=== PATIENT | female | born 1980 | race Caucasian/White ===

== ENCOUNTER 2022-08-21 18:04 | Emergency (ER) | payer OTHER ==
--- OUTSIDE RECORDS SUMMARY | 2022-08-21 18:18 | XMS REPORT | Continuity of Care Document ---
:1980 Author Organization [facility] t Address [address] [place] [address] [place] [id number] Care Team Providers Name Role Phone ERIC ZULUAGA Primary Care Physician Unavailable SYSTEM, PROVIDER NOT IN Attending Clinician Unavailable ALIE KOCH Attending Clinician Unavailable ALIE KOCH Attending Clinician Unavailable BERTO NAQVI Attending Clinician Unavailable DONG JOHNSON Attending Clinician Unavailable LAB90 Attending Clinician Unavailable HEMA_Kenneth Attending Clinician Unavailable Connie Garrido Attending Clinician [phone] Alie Koch MD Attending Clinician Tino Patiño PA-C Attending Clinician Only, Adc Test Attending Clinician Unavailable Arlet Tian MD Attending Clinician ARLET TIAN Attending Clinician Unavailable Doctor Unassigned, Griffin Attending Clinician Unavailable TION PATIÑO Attending Clinician Unavailable Vangie Curiel MD Attending Clinician Pattie Navarrete RN Attending Clinician Unavailable Only, Ang Db Test Attending Clinician Unavailable Unknown, Attending Attending Clinician Unavailable Katerina Pozo Attending Clinician KATERINA FERGUSON Attending Clinician Unavailable [facility] Attending Clinician Unavailable Pgy3 Attending Clinician Unavailable LIN STOVER Attending Clinician Unavailable Lin Stover MD Attending Clinician RICKIE CABRERA Attending Clinician Unavailable Jennifer MARQUEZCNPMacy Attending Clinician [phone] Hannah Castillo Attending Clinician HANNAH RODRIGUEZ Attending Clinician Unavailable Wellington Borjas Attending Clinician WELLINGTON VANG Attending Clinician Unavailable Meagan Attending Clinician Unavailable ALIE KOCH Admitting Clinician Unavailable KENNETH Admitting Clinician Unavailable Alie Koch MD Admitting Clinician TINO PATIÑO Admitting Clinician Unavailable Meagan Admitting Clinician Unavailable Payers Payer Name Policy Type Policy Number Effective Date Expiration Date Karina CRABTREE [id number] [facility] 00:00:00 AETNA MP CVS 9 [id number] 2022 SILVER: O HOG CUTTER 94 00:00:[address] [facility] INDIGENT PROGRAM [id number] Problems Condition Condition Condition Status Onset Resolution Last Treating Co mments Source Name Details Category Date Date Treatment Clinician Date Diabetes Diabetes Disease Active Kelse y 08-03 Seybold 00:00: - 00 Externa l Depression Depression Disease Active K elsey 08-03 Seybold 00:00: - 00 Externa l Neuropathy Neuropathy Disease Active K elsey 08-03 Seybold 00:00: - 00 Externa l History of History of Disease Active K elsey uterine uterine 08-03 Seybold cancer cancer 00:00: - 00 Externa l History of History of Disease Active K elsey back back 08-03 Seybold surgery surgery 00:00: - 00 Externa l Chronic Chronic Disease Active Ivonne bilateral bilateral 08-03 Seyb old low back low back 00:00: - pain with pain with 00 Exte rna right-side right-side l d sciatica d sciatica Hypothyroi Hypothyroi Disease Active K elsey dism dism 08-03 Seybold 00:00: - 00 Externa l S/P S/P Disease Active Univers hysterecto hysterecto 3-01 it y of my with my with 00:00: [place] oophorecto oophorecto 00 Me dical my my Branch Neoplasm Neoplasm Problem Active Sween y of uterus of Uterus 1-18 Comm uni 00:00: ty 00 [facility] Diabetes Diabetes Problem Active Sween y mellitus Mellitus 1-18 Commun i 00:00: ty 00 [facility] Malignant Malignant Disease Active 2020-03 Uni vers neoplasm neoplasm 2-07 ity of of of 00:00: [place] endometriu endometriu 00 Me dical m m Branch Smoker Smoker Disease Active 2020-03 Univers 2-07 ity of 00:00: [place] 00 Medical Branch BMI BMI Disease Active 2020-03 Univers 40.0-44.9, 40.0-44.9, 2-07 it y of adult adult 00:00: [place] 00 [facility] Branch Dental Dental Disease Active 2020-03 Univers caries caries 2-07 ity of 00:00: [place] Medical Branch Cervical Cervical Disease Active Overview: Un josue Papanicola Papanicola 9-24 Formattin ity of ou smear ou smear 00:00: g of this Tad as negative negative 00 note Medica l within within might be Branch last 12 last 12 different months months from the original. 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 2-24 it y of sterolemia sterolemia [place] Mixed Mixed Disease Active Univers anxiety anxiety 2-24 ity of and and 00:00: [place] depressive depressive 00 Me dical disorder disorder Branch Allergies, Adverse Reactions, Alerts Allergy Allergy Status Severity Reaction(s) Onset Inactive Treating Comm ents Source Name Type Date Date Clinician Sulfamet Propensi Active Hives Ivonne hoxazole ty to 5-08 Seybold -Trimeth adverse 00:00: - oprim reaction 00 Externa s l Cephalex Propensi Active Hives Ivonne in-Fd&C ty to 508 Seybold #2-Fd&C adverse 00:00: - Yellow reaction 00 Externa #10 s l Tramadol Propensi Active Other ineffecti Carlton sey ty to 5-08 ve Seybold adverse 00:00: - reaction 00 Externa s l Cephalex Propensi Active Hives 2012-03 Univer s in ty to 2-21 ity of adverse 00:00: [place] reaction 00 Medical s Branch Nabumeto Propensi Active Nausea 2012-03 Univer s ne ty to and/or 2-21 ity of adverse Vomiting 00:00: [place] reaction 00 Medical s Branch Sulfa Propensi Active Hives 2012-03 Univers (Sulfona ty to 2-21 ity of mide adverse 00:00: [place] Antibiot reaction 00 Medica l ics) s Branch Tramadol Propensi Active Nausea 2012-03 Univer s -Acetami ty to and/or 2-21 ity of nophen adverse Vomiting 00:00: [place] reaction 00 Medical s Branch CEPHALEX DRUG Active Hives 2012-03 Univers IN INGREDI 2-21 ity of 00:00: [place] 00 Medical Branch NABUMETO DRUG Active N/V 2012-03 Univers NE INGREDI 2-21 ity of 00:00: [place] 00 Medical Branch SULFA Drug Active Hives 2012-03 Univers (SULFONA Class 2-21 ity of MIDE 00:00: [place] ANTIBIOT 00 Medical ICS) Branch TRAMADOL DRUG Active N/V 2012-03 Univers -ACETAMI 2-21 ity of NOPHEN 00:00: [place] 00 Medical Branch Bactrim Allergy Active Moderate Hives [place] to Commun[facility] Keflex Allergy Active Moderate Hives [place] to Communi substanc [facility] Clinics Social History Social Habit Start Date Stop Date Quantity Comments Source Gender identity Ivonne stringer - External Sexual orientation Ivonne Keecaitlyn - External History of tobacco Cigarette Smoker Ivonne Keecaitlyn - use External Exposure to Not sure University of SARS-CoV-2 (event) [facility] [place] [facility] Alcohol intake 2022-08-03 2022-08-03 Ex-drinker Ivonne li - 00:00:00 00:00:00 (finding) External Tobacco use and 2022-08-02 2022-08-02 Smokeless Ivonneharmony stringer - exposure 00:00:00 00:00:00 tobacco non-user External History of Social 2022-08-02 2022-08-02 Ivonne Ortez - function 00:00:00 00:00:00 External Cigarettes smoked 2022-08-02 2022-08-02 Ivonne Ortez - current (pack per 00:00:00 00:00:00 Externa l day) - Reported Cigarette 2022-08-02 2022-08-02 Ivonne Ortez - pack-years 00:00:00 00:00:00 External Tobacco Comment 2021-03-03 2021-03-03 slowing down Univers ity of 00:00:00 00:00:00 [facility] [place] [facility] Sex [birth year] At [birth year] Ivonne stringer - 00:00:00 00:00:00 External Smoking Status Start Date Stop Date Source Heavy Tobacco Smoker [facility] Smokes tobacco daily 2022-08-02 00:00:00 Ivonne Ortez - External Medications Ordered Filled Start Stop Current Ordering Indication Dosage Frequency Signature Comments Components Source Medication Medication Date Date Medication? Clinician (SIG) Name Name Metformin 2022-2022- No 500mg Take 1 Shahla ey HCl ER 500 5- 05-09 tablet Seybol d MG oral 11:24: 00:00 (500 mg - TABLET SR 16 :00 total) by Exter na 24 HR mouth l daily (with breakfast) Gabapentin Yes 1800mg Take 3 Carlton sey 600 MG oral 5-09 tablets Seybo ld Tablet 11:05: (1,800 mg - 01 total) by Externa mouth l every night at bedtime Citalopram 2022- Yes 40mg Take 1 Kelse y Hydrobromid 5-09 tablet (40 Se ybold e 40 MG 11:05: mg total) - oral Tablet 01 by mouth Exte rna daily l Levothyroxi Yes 125ug Take 1 Carlton sey ne Sodium 5-09 tablet Seybold 125 MCG 11:05: (125 mcg - oral Tablet 01 total) by Ext michelle mouth l daily Metformin Yes [id number] 500mg Take 1 K elsey HCl ER 500 5-09 tablet Seybold MG oral 00:00: (500 mg - TABLET SR 00 total) by Exter na 24 HR mouth l daily (with breakfast) Meloxicam Yes [id number] 15mg QD Take 1 K elsey 15 MG oral 5-09 tablet (15 Sey bold Tablet 00:00: mg total) - 00 by mouth Externa daily as l needed for pain citalopram Yes Take 40 mg U nivers hydrobromid 3-01 base by ity o f e 13:57: mouth. [place] (CITALOPRAM 14 Medical ORAL) Branch citalopram Yes Take 40 mg U nivers hydrobromid 3-01 base by ity o f e 13:57: mouth. [place] (CITALOPRAM 14 Medical ORAL) Branch Levothyroxi Yes Take by Uni vers ne 125 mcg 3-01 mouth. ity of capsule 13:55: [address] gabapentin Yes 600mg Take 600 Un josue 600 mg 3-01 mg by ity of tablet 13:55: mouth 2 [place] [id number] (two) Medical times [place] daily. Levothyroxi Yes Take by Uni vers ne 125 mcg 3-01 mouth. ity of capsule 13:55: [address] gabapentin Yes 600mg Take 600 Un josue 600 mg 3-01 mg by ity of tablet 13:55: mouth 2 [place] [address] (two) Medical times Branch daily. metformin Yes [id number] 500mg Take 1 Univers ER 500 mg 2-02 tablet by ity o f 24 hr 00:00: mouth [place] tablet 00 daily with Medical breakfast. Branch metformin Yes [id number] 500mg Take 1 Univers ER 500 mg 2-02 tablet by ity o f 24 hr 00:00: mouth [place] tablet 00 daily with Medical breakfast. Branch metformin metformin 2020-03 No 1 Q1D metformin [place] ER 500 mg ER 500 mg 2-08 ER 500 mg Communi tablet,exte tablet,exte 00:00: tablet,ext ty nded nded 00 ended Hospita release 24 release 24 release 24 l hr 1 tablet hr 1 tablet hr 1 C linics every day every day tablet by oral by oral every day route. route. by oral route. citalopram citalopram No citalopram [place] 40 mg 40 mg 40 mg Communi tablet TAKE tablet TAKE tablet ty 1 TABLET BY 1 TABLET BY TAKE 1 Hospita MOUTH ONCE MOUTH ONCE TABLET BY l DAILY DAILY MOUTH ONCE Clinics DAILY gabapentin gabapentin No 2capsul BID gabapentin [place] 300 mg 300 mg e(s) 300 mg Communi capsule capsule capsule ty Take 2 Take 2 Take 2 Hospita capsules capsules capsules l twice a day twice a day twice a Clinics by oral by oral day by route for route for oral route 30 days. 30 days. for 30 days. levothyroxi levothyroxi No levothyrox [place] ne 125 mcg ne 125 mcg ine 125 Communi tablet TAKE tablet TAKE mcg tablet ty 1 TABLET BY 1 TABLET BY TAKE 1 Hospita MOUTH ONCE MOUTH ONCE TABLET BY l DAILY DAILY MOUTH ONCE Clinics DAILY cholecalcif cholecalcif No 1capsul Q1W cholecalci [place] iraida iraida e(s) ferol Communi (vitamin (vitamin (vitamin ty D3) 1,250 D3) 1,250 D3) 1,250 Hospita mcg (50,000 mcg (50,000 mcg l unit) unit) (50,000 Clinics capsule capsule unit) Take 1 Take 1 capsule capsule capsule Take 1 every week every week capsule by oral by oral every week route for route for by oral 90 days. 90 days. route for 90 days. citalopram citalopram No citalopram [place] 40 mg 40 mg 40 mg Communi tablet TAKE tablet TAKE tablet ty 1 TABLET BY 1 TABLET BY TAKE 1 Hospita MOUTH 1 MOUTH 1 TABLET BY l TIME EACH TIME EACH MOUTH 1 Cl inics DAY DAY TIME EACH DAY folic acid folic acid No 1 Q1D folic acid [place] 1 mg tablet 1 mg tablet 1 mg C ommuni Take 1 Take 1 tablet ty tablet tablet Take 1 Hospita every day every day tablet l by oral by oral every day Clin ics route for route for by oral 90 days. 90 days. route for 90 days. gabapentin gabapentin No gabapentin [place] 300 mg 300 mg 300 mg Communi capsule capsule capsule ty TAKE 2 TAKE 2 TAKE 2 Hospita CAPSULES BY CAPSULES BY CAPSULES l MOUTH TWICE MOUTH TWICE BY MOUTH Clinics A DAY A DAY TWICE A DAY levothyroxi levothyroxi No levothyrox [place] ne 125 mcg ne 125 mcg ine 125 Communi tablet TAKE tablet TAKE mcg tablet ty 1 TABLET BY 1 TABLET BY TAKE 1 Hospita MOUTH 1 MOUTH 1 TABLET BY l TIME EACH TIME EACH MOUTH 1 Cl inics DAY DAY TIME EACH DAY citalopram citalopram No citalopram [place] 40 mg 40 mg 40 mg Communi tablet TAKE tablet TAKE tablet ty 1 TABLET BY 1 TABLET BY TAKE 1 Hospita MOUTH EVERY MOUTH EVERY TABLET BY l DAY DAY MOUTH Clinics EVERY DAY gabapentin gabapentin No 1 TID gabapentin [place] 600 mg 600 mg 600 mg Communi tablet Take tablet Take tablet ty 1 tablet 3 1 tablet 3 Take 1 H ospita times a day times a day tablet 3 l by oral by oral times a Clinic s route for route for day by 90 days. 90 days. oral route for 90 days. levothyroxi levothyroxi No levothyrox [place] ne 125 mcg ne 125 mcg ine 125 Communi tablet TAKE tablet TAKE mcg tablet ty 1 TABLET BY 1 TABLET BY TAKE 1 Hospita MOUTH EVERY MOUTH EVERY TABLET BY l DAY DAY MOUTH Clinics EVERY DAY metformin metformin No metformin [place] ER 500 mg ER 500 mg ER 500 mg Communi tablet,exte tablet,exte tablet,ext ty nded nded ended Hospita release 24 release 24 release 24 l hr TAKE 1 hr TAKE 1 hr TAKE 1 Clinics TABLET BY TABLET BY TABLET BY MOUTH DAILY MOUTH DAILY MOUTH WITH WITH DAILY WITH BREAKFAST BREAKFAST BREAKFAST trazodone trazodone No 1 Q1D trazodone [place] 50 mg 50 mg 50 mg Communi tablet Take tablet Take tablet ty 1 tablet 1 tablet Take 1 Hospi ta every day every day tablet l by oral by oral every day Clin ics route at route at by oral bedtime. bedtime. route at bedtime. citalopram citalopram No citalopram [place] 40 mg 40 mg 40 mg Communi tablet TAKE tablet TAKE tablet ty 1 TABLET BY 1 TABLET BY TAKE 1 Hospita MOUTH ONCE MOUTH ONCE TABLET BY l DAILY DAILY MOUTH ONCE Clinics DAILY gabapentin gabapentin No 2capsul BID gabapentin [place] 300 mg 300 mg e(s) 300 mg Communi capsule capsule capsule ty Take 2 Take 2 Take 2 Hospita capsules capsules capsules l twice a day twice a day twice a Clinics by oral by oral day by route for route for oral route 30 days. 30 days. for 30 days. levothyroxi levothyroxi No levothyrox [place] ne 125 mcg ne 125 mcg ine 125 Communi tablet TAKE tablet TAKE mcg tablet ty 1 TABLET BY 1 TABLET BY TAKE 1 Hospita MOUTH ONCE MOUTH ONCE TABLET BY l DAILY DAILY MOUTH ONCE Clinics DAILY citalopram citalopram No citalopram [place] 40 mg 40 mg 40 mg Communi tablet TAKE tablet TAKE tablet ty 1 TABLET BY 1 TABLET BY TAKE 1 Hospita MOUTH ONCE MOUTH ONCE TABLET BY l DAILY DAILY MOUTH ONCE Clinics DAILY gabapentin gabapentin No 2capsul BID gabapentin [place] 300 mg 300 mg e(s) 300 mg Communi capsule capsule capsule ty Take 2 Take 2 Take 2 Hospita capsules capsules capsules l twice a day twice a day twice a Clinics by oral by oral day by route for route for oral route 30 days. 30 days. for 30 days. levothyroxi levothyroxi No levothyrox [place] ne 125 mcg ne 125 mcg ine 125 Communi tablet TAKE tablet TAKE mcg tablet ty 1 TABLET BY 1 TABLET BY TAKE 1 Hospita MOUTH ONCE MOUTH ONCE TABLET BY l DAILY DAILY MOUTH ONCE Clinics DAILY citalopram citalopram No citalopram [place] 40 mg 40 mg 40 mg Communi tablet TAKE tablet TAKE tablet ty 1 TABLET BY 1 TABLET BY TAKE 1 Hospita MOUTH ONCE MOUTH ONCE TABLET BY l DAILY DAILY MOUTH ONCE Clinics DAILY gabapentin gabapentin No 2capsul BID gabapentin [place] 300 mg 300 mg e(s) 300 mg Communi capsule capsule capsule ty Take 2 Take 2 Take 2 Hospita capsules capsules capsules l twice a day twice a day twice a Clinics by oral by oral day by route for route for oral route 30 days. 30 days. for 30 days. levothyroxi levothyroxi No levothyrox [place] ne 125 mcg ne 125 mcg ine 125 Communi tablet TAKE tablet TAKE mcg tablet ty 1 TABLET BY 1 TABLET BY TAKE 1 Hospita MOUTH ONCE MOUTH ONCE TABLET BY l DAILY DAILY MOUTH ONCE Clinics DAILY Vital Signs Vital Name Observation Time Observation Value Comments Source Systolic blood 2022-08-03 16:02:00 141 mm[Hg] Ivonne Ortez - pressure External Diastolic blood 2022-08-03 16:02:00 79 mm[Hg] Lincoln Ortez - pressure External Heart rate 2022-08-03 16:02:00 70 /min Ivonne johnsonbold - External Body temperature 2022-08-03 16:02:00 36.61 Peyton Shahla johnson Seybcaitlyn - External Respiratory rate 2022-08-03 16:02:00 18 /min Shahla Ortez - External Body height 2022-08-03 16:02:00 170.2 cm Ivonne johnsonbold - External Body weight 2022-08-03 16:02:00 65.318 kg Ivonne johnsonbold - External BMI 2022-08-03 16:02:00 22.55 kg/m2 Ivonne johnsonbold - External BP Diastolic 2021-07-01 00:00:00 83 mm[Hg] [facility] s Height 2021-07-01 00:00:00 67 [in_i] [facility] s BMI (Body Mass 2021-07-01 00:00:00 39.2 kg/m2 [facility] BP Systolic 2021-07-01 00:00:00 131 mm[Hg] [facility] s Body Weight 2021-07-01 00:00:00 4000 [oz_av] [facility] s Systolic blood 2021-05-26 19:54:00 135 mm[Hg] Univer sity of pressure [facility] [place] [facility] Diastolic blood 2021-05-26 19:54:00 92 mm[Hg] Unive rsity of pressure [facility] [place] [facility] Heart rate 2021-05-26 19:54:00 91 /min [facility] Body temperature 2021-05-26 19:54:00 36.56 P[facility]ton [facility] 2021-05-26 19:54:00 18 /min [facility] Body height 2021-05-26 19:54:00 167.6 cm [facility] Body weight 2021-05-26 19:54:00 115.259 kg [facility] BMI 2021-05-26 19:54:00 41.01 kg/m2 [facility] Oxygen saturation in 2021-05-26 19:54:00 100 /min [facility] Arterial blood by [facility] [place] [facility] Pulse oximetry Branch BP Diastolic 2021-04-14 00:00:00 72 mm[Hg] [facility] s Height 2021-04-14 00:00:00 67 [in_i] [facility] s BMI (Body Mass 2021-04-14 00:00:00 40.4 kg/m2 [facility] Clinic s BP Systolic 2021-04-14 00:00:00 137 mm[Hg] [facility] s Body Weight 2021-04-14 00:00:00 4128 [oz_av] [facility] s BP Diastolic 2020-10-07 00:00:00 84 mm[Hg] [facility] s Height 2020-10-07 00:00:00 67 [in_i] [facility] s BMI (Body Mass 2020-10-07 00:00:00 40.3 kg/m2 [facility]) [facility] s BP Systolic 2020-10-07 00:00:00 130 mm[Hg] [facility] s Body Weight 2020-10-07 00:00:00 4112 [oz_av] [facility] s Procedures Procedure Date / Time Performing Clinician Source Performed MAMMO, screening, digital, 2020-10-07 00:00:00 S [facility] US, transvaginal 2020-10-07 00:00:00 [facility] Back Surgery 2013-07-27 00:00:00 [facility] Procedure on Wrist 2011-04-28 00:00:00 [facility] Cholecystectomy 2011-03-28 00:00:00 [facility] Orthopedic Surgery [facility] Plan of Care Planned Activity Planned Date Details Comments Source Diagnostic Test 2021-07-01 microalbumin, [place] Comm unity Pending 00:00:00 urine [code = Hospital Clini cs microalbumin, urine] Diagnostic Test 2021-07-01 CMP, serum or [place] Comm unity Pending 00:00:00 plasma [code = Hospital Clin ics CMP, serum or plasma] Diagnostic Test 2021-07-01 CBC w/ auto diff [place] C ommunity Pending 00:00:00 [code = CBC w/ Hospital Clin ics auto diff] Diagnostic Test 2021-07-01 lipid panel, serum [place] Community Pending 00:00:00 [code = lipid Hospital Clini cs panel, serum] Diagnostic Test 2021-07-01 TSH + free T4, [place] Com munity Pending 00:00:00 serum [code = TSH Hospital C linics + free T4, serum] Diagnostic Test 2021-07-01 vitamin D, [place] Commu nity Pending 00:00:00 25-hydroxy, total, Hospital Clinics serum [code = vitamin D, 25-hydroxy, total, serum] Diagnostic Test 2021-07-01 vitamin B12 + [place] Comm unity Pending 00:00:00 folate, serum or Hospital Cl inics blood [code = vitamin B12 + folate, serum or blood] Diagnostic Test 2021-07-01 HbA1c (hemoglobin [place] Community Pending 00:00:00 A1c), blood [code Hospital C linics = HbA1c (hemoglobin A1c), blood] Diagnostic Test 2021-07-01 urinalysis, reflex [place] Community Pending 00:00:00 culture [code = Hospital Cli nics urinalysis, reflex culture] Encounters Start End Encounter Admission Attending Care Care Encounter Source Date/Time Date/Time Type Type Clinicians Facility Department ID 2021-03-12 Outpatient SYSTEM, [facility] [id number] 10:45:46 PROVIDER Jenaro o n 2021-03-10 Outpatient ALIE ELLIS [facility] OBO 1 [id number] Univers 15:42:23 ALIE KOCH concha [facility] 2021-03-03 Outpatient ALIE KOCH [facility] OBO 1 [id number] [facility] 10:36:20 ALIE KOCH [facility] 2022-09-01 2022-09-01 Outpatient IVONNE NAQVI [id number] Ivonne 15:00:00 15:00:00 BERTO Seybol d 2022-08-26 2022-08-26 Outpatient IVONNE JOHNSON IVONNE [id number] Ivonne 13:30:00 13:30:00 DONG Seybol d 2022-08-12 2022-08-12 Outpatient PREIVONNE LORENZO [id number] Ivonne 00:00:00 00:00:00 BERTO Seybol d 2022-08-10 2022-08-10 Outpatient PREIVONNE LORENZOSEY [id number] Ivonne 00:00:00 00:00:00 BERTO Seybol d 2022-08-03 2022-08-03 Outpatient LAB90 IVONNE IVONNE [id number] Ivonne 11:50:00 11:50:00 Seybol d 2022-08-03 2022-08-03 Outpatient IVONNE NAQVISEY [id number] Ivonne 11:00:00 11:00:00 BERTO Seybol d 2021-07-27 2021-07-27 Outpatient SISSON_C [facility] [id number] [place] 06:00:00 06:00:00 [id number] Commun i ty Hospita l Clinics 2021-07-01 2021-07-01 Outpatient SISSON_C [facility] [id number] [place] 11:49:00 11:49:00 0406 Commun i ty Hospita l Clinics 2021-07-01 2021-07-01 [facility] [place] 06 [place] 00:00:00 00:00:00 Ruben Garrido MSN, MANAGER DATABASE, Hospital - ty COOK VEGETABLE-C: [address] [place] [facility] Clinic s [address], [address], aLne Garrido [place] MSN, COOK VEGETABLE-C [id number] , Ph. 2021-07-01 2021-07-01 Outpatient Hema [facility] [id number] 00:00:00 00:00:00 Connie [id number] 2021-05-26 2021-05-26 Office August, UNIVERSIT [id number] Univers 14:00:00 14:30:00 Visit Alie Page HEALTH [id number] i ty of CL[place]ICS [id number] [id number] [place] [id number] Branch 2021-05-26 2021-05-26 Outpatient ALEI ELLIS [facility] [id number] Univers 14:00:00 14:00:00 ALIE KOCH concha [facility] 2021-05-12 2021-05-12 Outpatient ALIE ELLIS [facility] [id number] Univers 14:30:00 14:30:00 ALIE KOCH concha [facility] 2021-04-28 2021-04-28 Telephone Haroon, UNIVERSIT [id number] Univers 00:00:00 00:00:00 [facility] HEALTH [id number] i ty of CL[place]ICS [id number] [id number] [facility] 096 Branch 2021-04-22 2021-04-22 Surgery RULA Koch [id number] Univers 12:00:00 17:25:00 Aliemercedez MADISONY [id number] it y [facility] [place] [facility] [id number] Tad as [id number] [facility] 103 Branch 2021-04-22 2021-04-22 Outpatient ALIE ELLIS [facility] OBO [id number] Univers 10:31:00 17:25:00 ALIE KOCH concha [facility] 2021-04-22 2021-04-22 Hospital RULA Koch [id number] Univers 10:31:00 17:25:00 Encounter Alie STRAUSS [id number] ity [facility] [id number] Tad as [id number] [facility] 104 Branch 2021-04-21 2021-04-21 Laboratory Only, Adc Test [facility] 1.2.840. 114 [id number] Univers 13:30:00 13:45:00 Only Arlet Tian 350.1.13.10 ity [facility] 4.2.7.2.686 [facility] [phone] [facility] [address] 2021-04-21 2021-04-21 Outpatient R JAYLAN [facility] [id number] Univers 13:30:00 13:30:00 ARLET plata [facility] 2021-04-21 2021-04-21 Outpatient Sierra KOCH ALIE [facility] [id number] Univers 11:30:00 11:30:00 AUGUST ALIE concha [facility] 2021-04-21 2021-04-21 Outpatient Sierra KOCH ALIE [facility] [id number] Univers 11:30:00 11:30:00 AUGUST ALIE concha [facility] 2021-04-21 2021-04-21 Orders Doctor ENNIS 1.2.840.114 [id number] Univers 00:00:00 00:00:00 Only Unassigned, RICA 350.1.13.10 ity of [facility] 4.2.7.2.686 Tad [phone] [facility] [address] 2021-04-14 2021-04-14 Outpatient HEMA_Kenneth [facility] [id number] [place] 03:10:00 03:10:00 0118 Commun i ty [facility] 2021-04-14 2021-04-14 Connie [facility] [place] 00:00:00 00:00:00 Ruben [place] [facility] MSN, MANAGER DATABASE, Hospital - ty COOK VEGETABLE-C: [address] [place] [facility], Clinic s [address], Connie [address] [place] MSN, COOK VEGETABLE-C [address] , Ph. 2021-04-14 2021-04-14 Outpatient Hema [facility] [id number] 00:00:00 00:00:00 Connie [id number] 2021-04-08 2021-04-08 Outpatient SISSON_C [facility] [id number] [place] 03:04:00 03:04:00 0112 Commun i ty [facility]osp[facility] Clinics 2021-04-07 2021-04-07 Outpatient R HAROON [facility] [id number] Univers 12:57:02 23:59:00 TINO ity [facility] 2021-04-07 2021-04-07 [facility] 1.2.840.114 [id number] Univers 12:57:02 23:59:00 Encounter Tino ALMENDAREZ 350.1.13.10 it[place] [phone] Ma dical NAL 843 [facility] 2021-04-06 2021-04-06 Laboratory Only, Adc Test [facility] 1.2.840. 114 [id number] Univers 17:00:00 17:15:00 Only Arlet Tian 350.1.13.10 it[place] [phone] [facility] [address] [place] 2021-04-06 2021-04-06 Outpatient R JAYLAN [facility] [id number] Univers 17:00:00 17:00:00 ARLET plata [facility] 2021-04-06 2021-04-06 Orders Doctor RAYMON 1.2.840.114 [id number] Univers 00:00:00 00:00:00 Only Unassigned, RICA 350.1.13.10 ity of [facility] 4.2.7.2.686 Tad as [phone] [facility] [address] [place] 2021-04-06 2021-04-06 Telephone Moisés [facility] 1.2.124.701 [id number] Univers 00:00:00 00:00:00 Vangie ALMENDAREZ 350.1.13.10 [facility] [place] [phone] Ma dical NAL 059 [facility] 2021-04-02 2021-04-02 Outpatient R HAROON [facility] [id number] Univers 10:30:00 10:30:00 TINO ity of [facility] 2021-04-01 2021-04-01 Laboratory Only, Adc Test [facility] 1.2.840. 114 [id number] Univers 11:30:00 11:45:00 Only Tino Patiño 350.1.13.10 it[place] [phone] [facility] [address] 2021-04-01 2021-04-01 Outpatient R HAROON [facility] [id number] Univers 11:30:00 11:30:00 TINO plata [facility] 2021-03-23 2021-03-23 Outpatient R HAROON [facility] [id number] Univers 14:15:32 23:59:00 TINO plata [facility] 2021-03-23 2021-03-23 Hospital MERY Patiño 1.2.840.114 [id number] Univers 14:15:32 23:59:[address] [facility] 350.1.13.10 ity of [facility] 4[place]2.7[place]2.[place] [phone] [facility] [address] 2021-03-19 2021-03-19 Outpatient R HAROON [facility] [id number] Univers 09:00:00 09:00:00 TINO plata [facility] 2021-03-17 2021-03-17 Orders Doctor ENNIS 1.2.840.114 [id number] Univers 00:00:00 00:00:00 Only UnassignedRICA 350.1.13.10 ity of [facility] 4.2.7.2.686 Tad as [phone] [facility] [address] 2021-03-16 2021-03-16 Telephone MERY Koch 1.2.840.11 [id number] Univers 00:00:00 00:00:[address] [facility] 350.1.13.10 i ty [place] [phone] [facility] [address] 2021-03-14 2021-03-14 Telephone RAYMON Navarrete 1.2.567.189 [id number] Univers 00:00:00 00:00:00 Pattie STRAUSS 350.1.13.10 i ty of HOSPITAL 4.2.7.2.686 Tad as [phone] [facility] [address] 2021 2021 Laboratory Only, Ang Db Test [facility] 1.2.8 40.114 [id number] Univers 13:00:00 13:15:00 Only Unknown, Attending HEALTH 350.1.13.10 ity of Katerina Ferguson 4.2.7.2.686 [facility] [phone] Ma dic[address] MEDICAL OFFICE BUILDING 2021 2021 Outpatient Sierra [facility] [id number] Univers 13:00:00 13:00:00 KATERINA itconcha [facility] 2021-03-04 2021-03-04 Case Haroon, UNIVERSIT 1.2.840.114 [id number] Univers 00:00:00 00:00:00 Management [place] Concha [facility] 350.1.13.10 ity [place] [id number] [facility] [address] [place] 2021-03-03 2021-03-03 Seed Laboratory Assistant [facility] UNIVERSIT 1.2.840.114 [id number] Univers 11:32:01 11:47:01 Visit KochAlie [employer] 350.1.13.10 ity [place] [id number] [facility] [address] 2021-03-03 2021-03-03 Outpatient ALIE ELLIS [facility] [id number] Univers 11:45:00 11:45:00 AUGUST ALIE concha [facility] 2021-03-03 2021-03-03 Office August, UNIVERSIT 1.2.840.114 [id number] Univers 08:27:22 09:27:22 Visit Alie Page [employer] 350.1.13.10 i ty [place] [id number] [place] [address] [place] 2021-03-03 2021-03-03 Outpatient Sierra KOCH ALIE [facility] [id number] Univers 09:00:00 09:00:00 ALIE KOCH [facility] 2021-02-12 2021-02-12 Telephone Pgy3 UNIVERSIT 1.2.840.114 [id number] Univers 00:00:00 00:00:00 Y HEALTH 350.1.13.10 i [place] [id number] [address] 2021-02-09 2021-02-09 [facility] [id number] Univers 14:45:00 17:23:[address] [facility] 2021-02-09 2021-02-09 [facility] [id number] Univers 14:45:00 17:23:13 [facility] 2021-[facility]-09 2021-02-09 Office Pgy3 UNIVERSIT 1.2.743.083 [id number] Univers 14:42:06 17:23:13 Visit Lin Stover [facility] 350.1.13. 10 ity of [facility] 4.2.7.2.[place] [id number] [address] 2021-02-09 2021-02-09 [facility] [id number] Univers 14:45:00 14:45:[address] [facility] 2021-02-09 2021-02-09 Orders Doctor ENNIS 1.2.840.114 [id number] Univers 00:00:00 00:00:00 Only Unassigned, RICA 350.1.13.10 ity of [facility] 4.2.7.2.686 Tad as [phone] [place] [address] [address] 2021-01-23 2021-01-23 [facility] [id number] Univers 14:00:00 14:00:00 RICKIE [facility] 2020-12-27 2020-12-27 Outpatient SISSON_C [facility] [id number] [place] 07:22:00 07:22:00 1002 Commun i ty Hospita l Clinics 2020-12-22 2020-12-22 Telephone Jennifer [facility] 1.2.840.114 [id number] Univers 00:00:00 00:00:00 Macy Cooper SECRET CODE EXPERT 350.1.13.10 ity of REGIONAL 4.2.7.2.686 Tad as MATERNAL [phone] [facility] CHILD [address] [place] [address] 2020-12-22 2020-12-22 Orders Doctor RAYMON 1.2.840.114 [id number] Univers 00:00:00 00:00:00 Only Unassigned, RICA 350.1.13.10 ity of [facility] 4.2.7.2.686 Tad as [id number] [address] 2020-12-12 2020-12-12 Office Macy Rodriguez [facility] 1.2.8 40.114 [id number] Univers 13:11:35 14:04:53 Visit Hannah Rodriguez SECRET CODE EXPERT 350.1.13.10 ity of REGIONAL 4.2.7.2.686 Tad as MATERNAL [phone] [facility] CHILD [address] [place] [address] 2020-12-12 2020-12-12 Outpatient Sierra RODRIGUEZ [facility] [id number] Univers 13:30:00 13:30:00 HANNAH plata o f [facility] 2020-12-12 2020-12-12 Orders Doctor RAYMON 1.2.840.114 [id number] Univers 00:00:00 00:00:00 Only Unassigned, RICA 350.1.13.10 ity of [facility] 4.2.7.2.686 Tad as [id number] [address] 2020-12-12 2020-12-12 Orders Doctor RAYMON 1.2.840.114 [id number] Univers 00:00:00 00:00:00 Only Unassigned, RICA 350.1.13.10 ity of [facility] 4.2.7.2.686 Tad as [phone] [address] 2020-11-22 2020-11-22 Outpatient SISSON_C [facility] [id number] [place] 02:28:00 02:28:00 0828 Commun i ty Hospita l Clinics 2020-11-12 2020-11-12 Outpatient SISSON_C [facility] 2020 [place] 04:12:00 04:12:00 0818 Commun i ty Hospita l Clinics 2020-11-12 2020-11-12 Outpatient Hema [facility] [id number] 00:00:00 00:00:00 Connie [id number] 2020-11-12 2020-11-12 [facility] [place] 18 [place] 00:00:00 00:00:00 Hema, [facility] uni MSN, MANAGER DATABASE, Hospital - ty COOK VEGETABLE-C: [address] [place] [facility] [address] [facility], Clinic s [address], Connie [address] [place] MSN, COOK VEGETABLE-C [address] , Ph. 2020-10-07 2020-10-07 Outpatient SISSON_C [facility] [id number] [place] 10:31:00 10:31:00 0713 Commun i ty Hospita l [facility] 2020-10-07 2020-10-07 Outpatient Hema, [facility] [id number] 00:00:00 00:00:00 Connie [id number] 2020-10-07 2020-10-07 [facility] [place] 13 [place] 00:00:00 00:00:00 Hema [facility] Comm uni MSN, MANAGER DATABASE, Hospital - ty COOK VEGETABLE-C: [address] [place] [facility] [facility], Clinic s [address], Connie [address] [place] MSN, COOK VEGETABLE-C [address] , Ph. 2020-10-07 2020-10-07 Outpatient Hema, [facility] [id number] 00:00:00 00:00:00 Connie [id number] 2020-10-07 2020-10-07 Outpatient Hema [facility] [id number] 00:00:00 00:00:00 Connie [id number] 2020-09-05 2020-09-05 Outpatient HEMA_Kenneth [facility] [id number] [place] 10:12:00 10:12:00 0611 Commun i ty Hospita l Clinics 2020-08-05 2020-08-05 Outpatient HEMA_Kenneth [facility] [id number] [place] 04:12:00 04:12:00 0511 Commun i ty Hosp[facility] 2020-03-07 2020-03-07 Emergency Ciera [facility] 1.2.079.797 [id number] Univers 21:33:00 22:38:00 [place] 350.1.13.10 i ty [facility] 4.2.7.2.686 [facility] [id number] [address] 2020-03-07 2020-03-07 Emergency X CIERA [facility] ERT [id number] Univers 21:18:00 21:18:00 [place] plata [facility] 2020-01-29 2020-01-29 Outpatient Meagan [place] [id number] [place] 03:09:00 03:09:00 1103 Medical Group Results This patient has no known results.
== END 2022-08-21 18:43 | disposition left against medical advice (07) ==
LOC: ER 18:04
DX: Z02.9 Encounter for administrative examinations, unspecified (principal)